=== PATIENT | male | born 1980 | race Caucasian/White ===

== ENCOUNTER 2023-02-21 14:39 | Emergency (ER) | payer MEDICAID ==
[~2023-02-21] VITALS: Ht 172.7 cm; Wt 58.0 kg
[2023-02-21 14:40] VITALS: O2SAT 97
[2023-02-21 18:20] VITALS: BP 124/85; PULSE 65; RESP 20; TEMP 97.9
== END 2023-02-21 18:21 | disposition home or self-care (01) ==
LOC: ER 14:39
DX: S01.511A Laceration without foreign body of lip, initial encounter (principal); Y08.89XA Assault by other specified means, initial encounter; Y93.89 Activity, other specified; Y92.89 Other specified places as the place of occurrence of the external cause; Y99.8 Other external cause status
CPT/HCPCS: 99281